=== PATIENT | female | born 1960 | race Caucasian/White ===

== ENCOUNTER → 2020-12-03 14:23 | Outpatient (CLI) | payer BC, SELFPAY ==
--- NOTE | 2020-12-03 16:31 | CT_ITS ---
PROCEDURE: CT HEAD/BRAIN WO CON CLINICAL INDICATION: worsening headache, mastoid tenderness COMPARISON: No exams were available for comparison TECHNIQUE: Axial images obtained. All CT scans at the facility use one or more dose reduction, viz: automated exposure control, ma/kV adjustment per patient size (including targeted exams where dose is matched to indication, i.e. head), or iterative reconstruction technique. FINDINGS: No midline shift, mass effect, intracranial hemorrhage, hydrocephalus, or extra-axial fluid collection is evident. The calvarium has an unremarkable appearance. No mastoid effusion. There are bilateral maxillary sinus air-fluid levels with moderate mucosal thickening the ethmoid sinuses and mucosal thickening of the posterior aspect of the right sphenoid sinus. IMPRESSION: No acute intracranial finding Sinusitis Dictated by: Kip Gamez MD 12/03/2020 17:10 Kip Gamez MD in [facility] 12/03/2020 17:10
== END ==
PROVIDERS: PCP Family Medicine; Visit Provider Specialist
DX: G44.1 Vascular headache, not elsewhere classified (principal); R51.9 Headache, unspecified; H92.09 Otalgia, unspecified ear; E83.10 Disorder of iron metabolism, unspecified; J32.4 Chronic pansinusitis
CPT/HCPCS: 36415; 70450; 82728

== ENCOUNTER → 2020-12-13 12:54 | Outpatient (CLI) | payer BC, SELFPAY | PROVIDERS: PCP Family Medicine; Visit Provider Specialist | DX: R51.9 Headache, unspecified (principal); G47.00 Insomnia, unspecified; G25.81 Restless legs syndrome; R06.83 Snoring; Z68.28 Body mass index [BMI] 28.0-28.9, adult; G47.33 Obstructive sleep apnea (adult) (pediatric) | CPT/HCPCS: G0399 ==

== ENCOUNTER → 2021-01-14 10:18 | Outpatient (POV) | payer BC, SELFPAY | PROVIDERS: Visit Provider Otolaryngology | DX: Z00.00 Encounter for general adult medical examination without abnormal findings (principal) ==